=== PATIENT | male | born 1980 | race Caucasian/White ===

== ENCOUNTER 2018-05-29 03:51 | Inpatient (IN) | payer OTHER ==
[~2018-05-29] VITALS: Ht 182.9 cm; Wt 84.0 kg
[2018-05-29] VITALS (10 sets, daily range): BP systolic 91–122; BP diastolic 57–75
[~2018-05-29 03:51] MED LIST: Motrin,Rufen800 MG PO; SUBOXONE 8 MG-1 EACH SL; XANAX0.25 MG PO
[2018-05-29] MEDS ORDERED: ATIVAN0.5 MG PO (03:56)
[2018-05-29 04:30] LABS: EOS % 1.7 % (1.0-4.0); HEMATOCRIT 40.3 % (42.0-52.0); HEMOGLOBIN 13.2 g/dl (14.0-18.0); LYMPH # 0.3 10*3/uL (1.3-4.4); LYMPH % 22.5 % (27.0-41.0); MEAN CELL VOLUME 89.4 fl (80.0-94.0); MEAN CORPUSCULAR HGB 29.3 pg (27.0-31.0); MEAN CORPUSCULAR HGB CONC 32.8 g/dl (33.0-37.0); MEAN PLATELET VOLUME 8.7 fl (9.6-12.3); MONO % 0.8 % (3.0-9.0); NEUT # 0.9 10*3/uL (2.3-7.9); NEUT % 74.2 % (47.0-73.0); PLATELET COUNT AUTOMATED 118 10*3/uL (130-400); RED BLOOD COUNT 4.51 10*6/uL (4.50-5.90); RED CELL DISTRI WIDTH 12.6 % (0-14.5)
[2018-05-29 04:45] LABS: ALBUMIN 3.7 gm/dl (3.1-4.5); ALKALINE PHOSPHATASE 144 U/L (45-117); BUN 10 mg/dl (7-24); CHLORIDE 106 mmol/L (98-107); CREATININE 0.96 mg/dL (0.70-1.30); LIPASE 97 U/L (73-393); POTASSIUM 2.9 mmol/L (3.5-5.1); SGOT/AST 104 IU/L (3-35); SGPT/ALT 161 U/L (12-78); SODIUM 141 mmol/L (136-145); TOTAL PROTEIN 7.3 gm/dL (6.4-8.2)
[2018-05-29 05:06] LABS: BILIRUBIN NEGATIVE (NEGATIVE); BLOOD TRACE-INTACT (NEGATIVE); CLARITY CLEAR (CLEAR); COLOR YELLOW (YELLOW); GLUCOSE NEGATIVE (NEGATIVE); KETONE NEGATIVE (NEGATIVE); LEUKO ESTERASE NEGATIVE (NEGATIVE); NITRITE NEGATIVE (NEGATIVE); PH 5.5 (5.0-9.0); SPECIFIC GRAVITY 1.015 (1.005-1.030); UROBILINOGEN 0.2 E.U./dl (0.2-1.0)
[2018-05-29 05:08] LABS: WHITE BLOOD COUNT 1.2 10*3/uL (4.8-10.8)
[2018-05-29 05:25] LABS: POLYCHROMASIA SLIGHT; TOTAL CELLS COUNTED 100 #CELLS
[2018-05-29 05:26] LABS: PLATELET SUFFICIENCY LOW (NORMAL)
[2018-05-29] MEDS ORDERED: TRAZODONE100 MG PO (06:51)
[2018-05-29 11:51] LABS: HEMATOCRIT 35.6 % (42.0-52.0); HEMOGLOBIN 11.6 g/dl (14.0-18.0); MEAN CELL VOLUME 90.4 fl (80.0-94.0); MEAN CORPUSCULAR HGB 29.4 pg (27.0-31.0); MEAN CORPUSCULAR HGB CONC 32.6 g/dl (33.0-37.0); MEAN PLATELET VOLUME 8.9 fl (9.6-12.3); PLATELET COUNT AUTOMATED 119 10*3/uL (130-400); RED BLOOD COUNT 3.94 10*6/uL (4.50-5.90); RED CELL DISTRI WIDTH 12.8 % (0-14.5); WHITE BLOOD COUNT 8.6 10*3/uL (4.8-10.8)
[2018-05-29 12:59] LABS: PLATELET SUFFICIENCY LOW (NORMAL); TOTAL CELLS COUNTED 100 #CELLS
[2018-05-30] VITALS: BP 88/45
[2018-05-30 06:07] LABS: HEMATOCRIT 34.4 % (42.0-52.0); HEMOGLOBIN 11.2 g/dl (14.0-18.0); MEAN CELL VOLUME 90.5 fl (80.0-94.0); MEAN CORPUSCULAR HGB 29.5 pg (27.0-31.0); MEAN CORPUSCULAR HGB CONC 32.6 g/dl (33.0-37.0); MEAN PLATELET VOLUME 9.1 fl (9.6-12.3); PLATELET COUNT AUTOMATED 107 10*3/uL (130-400); RED CELL DISTRI WIDTH 13.1 % (0-14.5); WHITE BLOOD COUNT 11.8 10*3/uL (4.8-10.8)
[2018-05-30 06:22] LABS: ALBUMIN 2.9 gm/dl (3.1-4.5); ALKALINE PHOSPHATASE 48 U/L (45-117); BUN 13 mg/dl (7-24); CHLORIDE 113 mmol/L (98-107); CHOLESTEROL 115 mg/dL (<200); CREATININE 0.85 mg/dL (0.70-1.30); FREE T4 1.13 ng/dl (0.76-1.46); PHOSPHOROUS 2.6 mg/dL (2.5-4.9); POTASSIUM 3.4 mmol/L (3.5-5.1); SGOT/AST 41 IU/L (3-35); SGPT/ALT 101 U/L (12-78); SODIUM 146 mmol/L (136-145); TOTAL PROTEIN 6.1 gm/dL (6.4-8.2); TRIGLYCERIDES 54 mg/dl (<150); VANCOMYCIN TROUGH 2.2 ug/mL (10-20); VLDL CHOLESTEROL 11 mg/dL (6-40)
[2018-05-30 06:23] LABS: HDL CHOLESTEROL 46 mg/dl (40-60); LDL CHOLESTEROL 58 mg/dL (9-159)
[2018-05-30 06:28] LABS: THYROID STIM HORMONE (HS) 0.224 uIU/ml (0.358-4.75)
[2018-05-30 07:14] LABS: TOTAL CELLS COUNTED 100 #CELLS
[2018-05-30 07:15] LABS: PLATELET SUFFICIENCY LOW (NORMAL)
[2018-05-30 08:00] VITALS: BP 87/49
[2018-05-30 08:13] LABS: VITAMIN D, 25-HYDROXY 28.9 ng/mL (30-100)
[2018-05-30 10:24] LABS: URINE AMPHETAMINES < 1000 (1000ng/ml); URINE BARBITURATES < 200 (200ng/ml); URINE BENZODIAZEPINES < 200 (200ng/ml); URINE CANNABINOIDS (THC) > 50 (50ng/ml); URINE COCAINE < 300 (300ng/ml); URINE METHADONE < 300 (300ng/ml); URINE OPIATES < 300 (300ng/ml)
[2018-05-30 10:32] LABS: URINE PHENCYCLIDINE < 25 (25ng/ml)
[2018-05-30 16:00] VITALS: BP 102/63
[2018-05-30] MEDS ORDERED: NATURE'S BLEND F1 MG PO (18:00)
[2018-05-30] MEDS ORDERED: VITAMIN D-32000 UNIT PO (18:00)
[2018-05-30] MEDS ORDERED: CIPRO500 MG PO (18:00)
[2018-05-30] MEDS ORDERED: FLAGYL500 MG PO (18:00)
[2018-05-30] MEDS ORDERED: PHENERGAN25 M3 PO (18:28)
[2018-05-31 06:15] LABS: HEPATITIS B SURFACE AG Negative (Negative); HIV 1+2 AB + HIV1 P24 AG Non Reactive (Non Reactive)
[2018-06-03 09:54] LABS: HEPATITIS C VIRUS ANTIBODY >11.0 s/co (0.0-0.9)
[2018-06-04 18:03] LABS: RESULT 1 Candida glabrata (.)
[2018-06-08 13:06] LABS: AMPHOTERICIN B MIC 1.0 ug/mL (.); FLUCONAZOLE MIC 8.0 ug/mL (.); ITRACONAZOLE MIC 0.5 ug/mL (.); KETOCONAZOLE MIC 0.25 ug/mL (.); VORICONAZOLE MIC 0.25 ug/mL (.); YEAST ID Candida glabrata (.)
== END 2018-05-30 18:31 | disposition home or self-care (01) | DRG 872 ==
LOC: ED 03:51 → EDHOLD 05:35 → 5E 05:35
PROVIDERS: Emergency Medicine Emergency Medical Services; Family Medicine; Internal Medicine
DX: A41.9 Sepsis, unspecified organism (principal); E87.2 Acidosis; D69.6 Thrombocytopenia, unspecified; D64.9 Anemia, unspecified; K52.9 Noninfective gastroenteritis and colitis, unspecified; R74.0 Nonspecific elevation of levels of transaminase and lactic acid dehydrogenase [LDH]; E87.6 Hypokalemia; G47.00 Insomnia, unspecified; F19.90 Other psychoactive substance use, unspecified, uncomplicated; F11.10 Opioid abuse, uncomplicated; R79.82 Elevated C-reactive protein (CRP); R65.20 Severe sepsis without septic shock; Z79.899 Other long term (current) drug therapy; Z81.8 Family history of other mental and behavioral disorders; Z81.1 Family history of alcohol abuse and dependence; Z84.89 Family history of other specified conditions; Z72.0 Tobacco use; Z71.6 Tobacco abuse counseling; Z78.9 Other specified health status

== ENCOUNTER 2018-05-31 11:33 | Inpatient (IN) | payer OTHER ==
[~2018-05-31] VITALS: Ht 185.4 cm; Wt 83.9 kg
--- NOTE | ~2018-05-31 | PR ---
[place], [place] PROGRESS NOTE NAME: LEOBARDO RINCON UNIT #: [id number] ROOM: 521 DOCTOR: FEDERICO NORTON,SARAI BIRTHDATE: [birth year] DOS: 06/01/2018 I had a [id number] encounter for this patient. The patient was seen and examined, agreed with assessment and plan made by nurse practitioner, Jennifer Frank, and made the necessary changes in the note. Charmaine Caballero MD CM:PNTRANS [id number] SARAI CABALLERO MD 06/11/18 0410 interface
--- NOTE | ~2018-05-31 | PR ---
[place], [place] PROGRESS NOTE NAME: LEOBARDO RINCON UNIT #: [id number] ROOM: 521 DOCTOR: ARACELY CASE,FEBRUARY BIRTHDATE: [birth year] DOS: SUBJECTIVE: The patient is a 38-year-old male who is being followed for fungemia. He was originally at the emergency room on May 29 for fever of 103.3 and nausea, vomiting and diarrhea. The nausea, vomiting and diarrhea have since improved. He had formed stool today. He has also had systemic joint aches and intermittent headache. Headache has improved. No photophobia, had some neck stiffness with original illness, but not pain. He was seen in ER, sent home and then called back due to positive blood culture with budding yeast, still only has it appears one set that is positive. Repeat blood cultures remained sterile from May 31. He had neck stiffness, but no neck pain. He has no neck pain now. No headache. LABORATORY DATA: Cultures as reviewed above. No other blood work done today. He has been afebrile. CURRENT MEDICATIONS: Include folic acid, Lovenox, vitamin D, Desyrel, Suboxone, Zithromax, Phenergan, Rocephin, Flagyl, Mycamine, Nicoderm, Motrin, Restoril. PHYSICAL EXAMINATION: VITAL SIGNS: Temperature 98.3, pulse 56, respirations 18, BP 134/82. GENERAL: Alert and oriented 38-year-old male, in no acute distress. HEENT: Normocephalic, no thrush. NECK: Supple, full range of motion without pain. LUNGS: Clear to auscultation bilaterally. Respirations even and unlabored. HEART: Regular rhythm. No murmur appreciated. ABDOMEN: Soft, nontender, nondistended. EXTREMITIES: No edema, deformity or cyanosis. SKIN: Warm, dry and free of rashes. ASSESSMENT: Fungemia of unknown etiology. He has had CTs done, which did not show any acute process of the chest, abdomen and pelvis other than minimal ground glass opacities in the inferior left upper lobe. PLAN: At this point, we will continue on antibiotics and antifungal coverage. Follow up on repeat blood cultures as well as the original positive blood cultures from the . 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 No tox screen was done. Cryptococcal antigen is pending. We will check a CD4 count and immunoglobulin level. Case discussed with Dr. Dodson. ABENA EVIE JESSICA [place], [place] PROGRESS NOTE NAME: LEOBARDO RINCON UNIT #: [id number] ROOM: 521 DOCTOR: ARACELY CASEFEBRUARY BIRTHDATE: [birth year] Charmaine Dodson MD CM:ALCON [id number] FEBRUARY ARACELY CASE 06/01/18 1744 interface
[~2018-05-31 11:33] MED LIST changes: +ATIVAN0.5 MG PO; +CIPRO500 MG PO; +FLAGYL500 MG PO; +NATURE'S BLEND F1 MG PO; +PHENERGAN25 M3 PO; +TRAZODONE100 MG PO; +VITAMIN D-32000 UNIT PO
[2018-05-31 12:00] VITALS: BP 144/95
[2018-05-31 13:20] LABS: BASO % 0.4 % (0.0-1.0); EOS # 0.2 10*3/uL (0.0-0.4); EOS % 2.8 % (1.0-4.0); HEMATOCRIT 37.2 % (42.0-52.0); LYMPH # 2.2 10*3/uL (1.3-4.4); LYMPH % 26.4 % (27.0-41.0); MEAN CELL VOLUME 90.7 fl (80.0-94.0); MEAN CORPUSCULAR HGB 29.3 pg (27.0-31.0); MEAN CORPUSCULAR HGB CONC 32.3 g/dl (33.0-37.0); MEAN PLATELET VOLUME 9.2 fl (9.6-12.3); MONO # 0.3 10*3/uL (0.1-1.0); MONO % 3.7 % (3.0-9.0); NEUT # 5.3 10*3/uL (2.3-7.9); NEUT % 64.9 % (47.0-73.0); PLATELET COUNT AUTOMATED 128 10*3/uL (130-400); WHITE BLOOD COUNT 8.2 10*3/uL (4.8-10.8)
[2018-05-31 13:29] LABS: ACT PARTIAL THROMBO TIME 30.1 SECONDS (20.8-31.5); INTERNATIONAL NORM RATIO 0.9 (2.0-3.5)
[2018-05-31 13:36] LABS: ALBUMIN 3.5 gm/dl (3.1-4.5); ALKALINE PHOSPHATASE 57 U/L (45-117); BUN 9 mg/dl (7-24); CHLORIDE 108 mmol/L (98-107); PHOSPHOROUS 3.2 mg/dL (2.5-4.9); POTASSIUM 3.7 mmol/L (3.5-5.1); SGOT/AST 42 IU/L (3-35); SGPT/ALT 95 U/L (12-78); SODIUM 142 mmol/L (136-145); TOTAL PROTEIN 7.1 gm/dL (6.4-8.2)
[2018-05-31 13:37] LABS: TROPONIN I < 0.015 ng/ml (<0.045)
[2018-05-31 16:00] VITALS: BP 129/87
[2018-05-31 20:00] VITALS: BP 128/87
[2018-06-01] VITALS: BP 111/71
[2018-06-01 08:00] VITALS: BP 110/64
[2018-06-01 12:00] VITALS: BP 134/82
[2018-06-01 16:00] VITALS: BP 131/77
[2018-06-01 20:00] VITALS: BP 132/83
[2018-06-02] VITALS: BP 149/82
[2018-06-02 06:40] LABS: BASO % 0.5 % (0.0-1.0); EOS # 0.2 10*3/uL (0.0-0.4); EOS % 5.4 % (1.0-4.0); HEMATOCRIT 33.7 % (42.0-52.0); HEMOGLOBIN 11.2 g/dl (14.0-18.0); LYMPH # 1.5 10*3/uL (1.3-4.4); LYMPH % 40.8 % (27.0-41.0); MEAN CELL VOLUME 87.8 fl (80.0-94.0); MEAN CORPUSCULAR HGB 29.2 pg (27.0-31.0); MEAN CORPUSCULAR HGB CONC 33.2 g/dl (33.0-37.0); MEAN PLATELET VOLUME 9.4 fl (9.6-12.3); MONO # 0.2 10*3/uL (0.1-1.0); MONO % 5.7 % (3.0-9.0); NEUT # 1.7 10*3/uL (2.3-7.9); NEUT % 46.5 % (47.0-73.0); PLATELET COUNT AUTOMATED 164 10*3/uL (130-400); RED BLOOD COUNT 3.84 10*6/uL (4.50-5.90); RED CELL DISTRI WIDTH 12.5 % (0-14.5); WHITE BLOOD COUNT 3.7 10*3/uL (4.8-10.8)
[2018-06-02 07:11] LABS: ALBUMIN 2.9 gm/dl (3.1-4.5); ALKALINE PHOSPHATASE 53 U/L (45-117); BUN 5 mg/dl (7-24); CHLORIDE 109 mmol/L (98-107); CREATININE 0.69 mg/dL (0.70-1.30); POTASSIUM 3.5 mmol/L (3.5-5.1); SGOT/AST 39 IU/L (3-35); SGPT/ALT 72 U/L (12-78); SODIUM 145 mmol/L (136-145); TOTAL PROTEIN 6.1 gm/dL (6.4-8.2)
[2018-06-02 08:00] VITALS: BP 121/67
[2018-06-02 12:00] VITALS: BP 132/87
[2018-06-02 16:00] VITALS: BP 146/81
[2018-06-02 20:00] VITALS: BP 152/91
[2018-06-02 22:00] VITALS: BP 140/82
[2018-06-03] VITALS: BP 120/69
[2018-06-03 08:00] VITALS: BP 130/74
[2018-06-03 12:00] VITALS: BP 148/89
[2018-06-03 12:05] LABS: CRYPTOCOCCUS ANTIGEN Negative (Negative)
[2018-06-03 16:00] VITALS: BP 115/72
[2018-06-03 20:00] VITALS: BP 132/89
[2018-06-04] VITALS (9 sets, daily range): BP systolic 87–158; BP diastolic 50–82
[2018-06-04 04:03] LABS: LYMPHOCYTES, ABSOLUTE 2.1 x10E3/uL (0.7-3.1); WBC 4.6 x10E3/uL (3.4-10.8)
[2018-06-04 06:45] LABS: BASO % 0.5 % (0.0-1.0); EOS # 0.3 10*3/uL (0.0-0.4); EOS % 5.2 % (1.0-4.0); HEMATOCRIT 38.3 % (42.0-52.0); HEMOGLOBIN 12.8 g/dl (14.0-18.0); LYMPH # 2.7 10*3/uL (1.3-4.4); LYMPH % 47.4 % (27.0-41.0); MEAN CORPUSCULAR HGB 29.1 pg (27.0-31.0); MEAN CORPUSCULAR HGB CONC 33.4 g/dl (33.0-37.0); MEAN PLATELET VOLUME 9.1 fl (9.6-12.3); MONO # 0.5 10*3/uL (0.1-1.0); MONO % 8.7 % (3.0-9.0); NEUT % 35.4 % (47.0-73.0); PLATELET COUNT AUTOMATED 200 10*3/uL (130-400); RED CELL DISTRI WIDTH 12.7 % (0-14.5); WHITE BLOOD COUNT 5.6 10*3/uL (4.8-10.8)
[2018-06-04 06:55] LABS: BUN 10 mg/dl (7-24); CHLORIDE 104 mmol/L (98-107); IRON 116 ug/dL (65-175); SODIUM 141 mmol/L (136-145); TOTAL IRON BINDING CAPACITY 321 ug/dl (250-450)
[2018-06-04 12:06] LABS: ABSOLUTE CD 4 HELPER 741 /uL (359-1519); ABSOLUTE CD8 SUPRESSOR 775 /uL (109-897); CD 4 POS LYMPH, % 35.3 % (30.8-58.5); CD 8 POS LYMPH, % 36.9 % (12.0-35.5); CD4-CD8 RATIO 0.96 (0.92-3.72)
[2018-06-05 07:12] LABS: BASO % 0.6 % (0.0-1.0); EOS # 0.3 10*3/uL (0.0-0.4); EOS % 5.4 % (1.0-4.0); HEMATOCRIT 37.8 % (42.0-52.0); HEMOGLOBIN 12.5 g/dl (14.0-18.0); LYMPH # 2.2 10*3/uL (1.3-4.4); LYMPH % 45.7 % (27.0-41.0); MEAN CELL VOLUME 88.1 fl (80.0-94.0); MEAN CORPUSCULAR HGB 29.1 pg (27.0-31.0); MEAN CORPUSCULAR HGB CONC 33.1 g/dl (33.0-37.0); MEAN PLATELET VOLUME 8.3 fl (9.6-12.3); MONO # 0.4 10*3/uL (0.1-1.0); MONO % 8.9 % (3.0-9.0); NEUT # 1.8 10*3/uL (2.3-7.9); NEUT % 37.1 % (47.0-73.0); PLATELET COUNT AUTOMATED 189 10*3/uL (130-400); RED BLOOD COUNT 4.29 10*6/uL (4.50-5.90); RED CELL DISTRI WIDTH 12.8 % (0-14.5); WHITE BLOOD COUNT 4.8 10*3/uL (4.8-10.8)
[2018-06-05 08:00] VITALS: BP 120/79
[2018-06-05 12:00] VITALS: BP 114/75
[2018-06-05] MEDS ORDERED: FLUONAZOLE200 MG PO (15:24)
== END 2018-06-05 17:08 | disposition home or self-care (01) | DRG 289 ==
LOC: 5E 11:33
PROVIDERS: Family Medicine; Internal Medicine; Nurse Practitioner
PROC: B24BZZ4 Ultrasonography of Heart with Aorta, Transesophageal (ICD-10-PCS; principal; 2018-06-04)
DX: I33.0 Acute and subacute infective endocarditis (principal); B49 Unspecified mycosis; D69.6 Thrombocytopenia, unspecified; E87.8 Other disorders of electrolyte and fluid balance, not elsewhere classified; H20.9 Unspecified iridocyclitis; H30.90 Unspecified chorioretinal inflammation, unspecified eye; D64.9 Anemia, unspecified; K52.9 Noninfective gastroenteritis and colitis, unspecified; R74.0 Nonspecific elevation of levels of transaminase and lactic acid dehydrogenase [LDH]; R79.82 Elevated C-reactive protein (CRP); Z72.0 Tobacco use; Z71.6 Tobacco abuse counseling; R00.1 Bradycardia, unspecified; R70.0 Elevated erythrocyte sedimentation rate; G47.00 Insomnia, unspecified; E53.8 Deficiency of other specified B group vitamins; E55.9 Vitamin D deficiency, unspecified; F19.90 Other psychoactive substance use, unspecified, uncomplicated; I34.0 Nonrheumatic mitral (valve) insufficiency; G43.809 Other migraine, not intractable, without status migrainosus; B19.20 Unspecified viral hepatitis C without hepatic coma; Z81.1 Family history of alcohol abuse and dependence; Z81.8 Family history of other mental and behavioral disorders; Z84.89 Family history of other specified conditions; Z88.8 Allergy status to other drugs, medicaments and biological substances; Z88.6 Allergy status to analgesic agent

== ENCOUNTER 2018-06-21 03:07 | Emergency (ER) | payer OTHER ==
[~2018-06-21] VITALS: Ht 182.8 cm; Wt 82.6 kg
[~2018-06-21 03:07] MED LIST changes: +FLUONAZOLE200 MG PO
[2018-06-21] MEDS ORDERED: MYCAMINE100 MG IV (03:13)
[2018-06-21 04:15] LABS: BILIRUBIN NEGATIVE (NEGATIVE); BLOOD NEGATIVE (NEGATIVE); CLARITY CLEAR (CLEAR); COLOR YELLOW (YELLOW); GLUCOSE NEGATIVE (NEGATIVE); KETONE NEGATIVE (NEGATIVE); LEUKO ESTERASE NEGATIVE (NEGATIVE); NITRITE NEGATIVE (NEGATIVE); SPECIFIC GRAVITY <= 1.005 (1.005-1.030); UROBILINOGEN 0.2 E.U./dl (0.2-1.0)
[2018-06-21 04:16] LABS: BASO % 0.5 % (0.0-1.0); EOS # 0.2 10*3/uL (0.0-0.4); EOS % 2.5 % (1.0-4.0); HEMATOCRIT 34.2 % (42.0-52.0); HEMOGLOBIN 11.6 g/dl (14.0-18.0); LYMPH # 1.7 10*3/uL (1.3-4.4); LYMPH % 28.2 % (27.0-41.0); MEAN CELL VOLUME 87.5 fl (80.0-94.0); MEAN CORPUSCULAR HGB 29.7 pg (27.0-31.0); MEAN CORPUSCULAR HGB CONC 33.9 g/dl (33.0-37.0); MEAN PLATELET VOLUME 8.5 fl (9.6-12.3); MONO # 0.4 10*3/uL (0.1-1.0); MONO % 6.9 % (3.0-9.0); NEUT # 3.8 10*3/uL (2.3-7.9); NEUT % 61.6 % (47.0-73.0); PLATELET COUNT AUTOMATED 251 10*3/uL (130-400); RED BLOOD COUNT 3.91 10*6/uL (4.50-5.90); RED CELL DISTRI WIDTH 12.5 % (0-14.5); WHITE BLOOD COUNT 6.1 10*3/uL (4.8-10.8)
[2018-06-21 04:23] LABS: RBC 0-2 rbc/hpf (0-2); WBC 0-2 wbc/hpf (0-5)
[2018-06-21 04:33] LABS: ALBUMIN 3.8 gm/dl (3.1-4.5); ALKALINE PHOSPHATASE 57 U/L (45-117); BUN 10 mg/dl (7-24); CHLORIDE 99 mmol/L (98-107); CREATININE 0.89 mg/dL (0.70-1.30); POTASSIUM 3.7 mmol/L (3.5-5.1); SGOT/AST 33 IU/L (3-35); SGPT/ALT 55 U/L (12-78); SODIUM 137 mmol/L (136-145); TOTAL PROTEIN 7.4 gm/dL (6.4-8.2)
[2018-06-21 05:45] LABS: URINE AMPHETAMINES < 1000 (1000ng/ml); URINE BARBITURATES < 200 (200ng/ml); URINE BENZODIAZEPINES < 200 (200ng/ml); URINE CANNABINOIDS (THC) > 50 (50ng/ml); URINE COCAINE < 300 (300ng/ml); URINE METHADONE < 300 (300ng/ml); URINE OPIATES < 300 (300ng/ml)
[2018-06-21 05:46] LABS: URINE PHENCYCLIDINE < 25 (25ng/ml)
== END 2018-06-23 05:22 | disposition short-term general hospital (02) ==
LOC: ED 03:07
PROVIDERS: Emergency Medicine
DX: I95.9 Hypotension, unspecified (principal); R50.9 Fever, unspecified; R51 Headache; R06.02 Shortness of breath; F17.200 Nicotine dependence, unspecified, uncomplicated; Z88.6 Allergy status to analgesic agent; Z79.899 Other long term (current) drug therapy

== ENCOUNTER 2018-06-22 22:32 | Emergency (ER) | payer OTHER ==
[~2018-06-22] VITALS: Ht 182.8 cm; Wt 81.6 kg
--- NOTE | ~2018-06-22 | EKG ---
[place], [place] ELECTROCARDIOGRAM REPORT NAME: LEOBARDO RINCON UNIT #: [id number] ROOM: DOCTOR: EPIPHANY DRAFT REPORT BIRTHDATE: [birth year] [facility] Test Date: 2018-06-22 Test Time: 23:13:05 Pat Name: LEOBARDO RINCON Department: Room: Gender: Clinical Laboratory Aide: : 1980 Requested By: LEILANI PRICE Order Number: [id number] Reading MD: Yessi Frank MD Measurements Intervals [place] Rate: 117 P: 58 HI: 123 QRS: 69 QRSD: 109 T: -21 QT: 317 QTc: 443 Interpretive Statements Sinus tachycardia Probable left atrial enlargement RSR' in V1 or V2, right VCD or RVH Baseline wander in lead(s) II Electronically Signed On 06-23-2018 11:13:17 PDT by Yessi Frank MD CM:EKGRPT:ELECTROCARDIOGRAM REPORT [id number] LEILANI PRICE MD EPIPHANY DRAFT REPORT LEILANI PRICE MD
[~2018-06-22 22:32] MED LIST changes: +MYCAMINE100 MG IV
[2018-06-22 23:30] LABS: BASO % 0.4 % (0.0-1.0); EOS # 0.2 10*3/uL (0.0-0.4); EOS % 2.9 % (1.0-4.0); HEMATOCRIT 35.3 % (42.0-52.0); HEMOGLOBIN 11.8 g/dl (14.0-18.0); LYMPH # 0.7 10*3/uL (1.3-4.4); LYMPH % 8.9 % (27.0-41.0); MEAN CELL VOLUME 86.7 fl (80.0-94.0); MEAN CORPUSCULAR HGB CONC 33.4 g/dl (33.0-37.0); MEAN PLATELET VOLUME 8.6 fl (9.6-12.3); MONO # 0.5 10*3/uL (0.1-1.0); MONO % 5.9 % (3.0-9.0); NEUT # 6.2 10*3/uL (2.3-7.9); NEUT % 81.6 % (47.0-73.0); PLATELET COUNT AUTOMATED 215 10*3/uL (130-400); RED BLOOD COUNT 4.07 10*6/uL (4.50-5.90); RED CELL DISTRI WIDTH 12.2 % (0-14.5); WHITE BLOOD COUNT 7.6 10*3/uL (4.8-10.8)
[2018-06-22 23:40] LABS: ACT PARTIAL THROMBO TIME 28.5 SECONDS (20.8-31.5)
[2018-06-22 23:46] LABS: ALBUMIN 3.8 gm/dl (3.1-4.5); ALKALINE PHOSPHATASE 93 U/L (45-117); BUN 12 mg/dl (7-24); CHLORIDE 100 mmol/L (98-107); CREATININE 0.95 mg/dL (0.70-1.30); LIPASE 66 U/L (73-393); POTASSIUM 3.5 mmol/L (3.5-5.1); SGOT/AST 35 IU/L (3-35); SGPT/ALT 66 U/L (12-78); SODIUM 135 mmol/L (136-145); TOTAL PROTEIN 8.3 gm/dL (6.4-8.2)
[2018-06-22 23:47] LABS: ETHYL ALCOHOL < 3.0 mg/dl (<3); TROPONIN I < 0.015 ng/ml (<0.045)
[2018-06-23 00:09] LABS: BILIRUBIN NEGATIVE (NEGATIVE); BLOOD NEGATIVE (NEGATIVE); CLARITY CLEAR (CLEAR); COLOR YELLOW (YELLOW); GLUCOSE NEGATIVE (NEGATIVE); KETONE NEGATIVE (NEGATIVE); LEUKO ESTERASE NEGATIVE (NEGATIVE); NITRITE NEGATIVE (NEGATIVE); SPECIFIC GRAVITY <= 1.005 (1.005-1.030); UROBILINOGEN 0.2 E.U./dl (0.2-1.0)
[2018-06-23 00:17] LABS: URINE AMPHETAMINES < 1000 (1000ng/ml); URINE BARBITURATES < 200 (200ng/ml); URINE BENZODIAZEPINES < 200 (200ng/ml); URINE CANNABINOIDS (THC) > 50 (50ng/ml); URINE COCAINE < 300 (300ng/ml); URINE METHADONE < 300 (300ng/ml); URINE OPIATES < 300 (300ng/ml)
[2018-06-23 00:18] LABS: URINE PHENCYCLIDINE < 25 (25ng/ml)
== END 2018-06-23 05:01 | disposition short-term general hospital (02) ==
LOC: ED 22:32
PROVIDERS: Emergency Medicine Emergency Medical Services
DX: I33.0 Acute and subacute infective endocarditis (principal); F17.200 Nicotine dependence, unspecified, uncomplicated; Z88.6 Allergy status to analgesic agent; Z79.899 Other long term (current) drug therapy

== ENCOUNTER → 2018-09-24 | Outpatient (CLI) | payer OTHER ==
[~2018-09-24] MED LIST changes: +LEXAPRO20 MG PO; +OMEPRAZOLE20 M2 PO; +TRAZODONE HCL300 MG PO
== END | disposition home or self-care (01) ==
LOC: RAD 13:43
DX: M19.011 Primary osteoarthritis, right shoulder (principal); M75.41 Impingement syndrome of right shoulder

== ENCOUNTER → 2018-10-11 | Day surgery (SDC) | payer OTHER ==
[~2018-10-11] VITALS: Ht 182.8 cm; Wt 83.9 kg
[~2018-10-11] MED LIST changes: -OMEPRAZOLE20 M2 PO
== END ==
LOC: SDC 10-08 13:15
DX: R10.13 Epigastric pain (principal); Z53.9 Procedure and treatment not carried out, unspecified reason

== ENCOUNTER → 2018-11-06 | Day surgery (SDC) | payer OTHER ==
[~2018-11-06] VITALS: Ht 182.8 cm; Wt 83.9 kg
[~2018-11-06] MED LIST changes: +OMEPRAZOLE20 M2 PO
--- NOTE | ~2018-11-06 | O ---
[place], [place] OPERATIVE NOTE NAME: LEOBARDO RINCON UNIT #: [id number] ROOM: DOCTOR: NEDRA GOMEZ MD BIRTHDATE: [birth year] DOS: 11/06/2018 INDICATIONS: A 38-year-old patient who presented with chief complaint of epigastric distress, dyspepsia, hepatitis C positive type 1A. ALLERGIES: SUSPECTED TO BE TO MORPHINE AND VISTARIL ____. FAMILY HISTORY: Noncontributory. PAST SURGICAL HISTORY: Right shoulder. 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 Gallbladder sludge. SOCIAL HISTORY: Smoker and has stopped alcohol last year. PROCEDURE: Today's procedure part of investigation is panendoscopy plus biopsy. PREMEDICATION: Propofol. SCOPE: Olympus forward-viewing gastroscope Q10 video. REPORT: After putting the patient in left lateral position and application of lubricant to the scope, the scope was introduced. Thereafter, under direct visualization, advanced through the length of esophagus without difficulty. There is no esophageal varicosity, gastritis of [id number] degree was noticed. No obstruction, no ulceration seen. Duodenal bulb, second and third part within normal limits. The patient extubated, tolerated the procedure well. IMPRESSION: Gastritis. The patient with a history of hepatitis C and Suboxone clinic with recreational drug, heroin history. Supportive management, follow up on gallbladder studies of his clinic visit. NEDRA GOMEZ MD CM:OPRECORD:OPERATIVE NOTE [id number] NEDRA GOMEZ MD 11/06/18 0846 interface
[2018-11-06 07:02] VITALS: BP 110/64
[2018-11-06 08:12] VITALS: BP 136/105
[2018-11-06 08:25] VITALS: BP 93/51
[2018-11-06 08:40] VITALS: BP 105/60
== END | disposition home or self-care (01) ==
LOC: SDC 11-01 10:15
DX: K29.50 Unspecified chronic gastritis without bleeding (principal); B19.20 Unspecified viral hepatitis C without hepatic coma; F19.11 Other psychoactive substance abuse, in remission; F41.9 Anxiety disorder, unspecified; F32.9 Major depressive disorder, single episode, unspecified; M19.90 Unspecified osteoarthritis, unspecified site; Z72.89 Other problems related to lifestyle; Z98.890 Other specified postprocedural states; Z88.5 Allergy status to narcotic agent; Z88.8 Allergy status to other drugs, medicaments and biological substances

== ENCOUNTER → 2018-12-14 | Outpatient (CLI) | payer OTHER | END | disposition home or self-care (01) | LOC: US 10:00 | DX: N50.3 Cyst of epididymis (principal) ==

== ENCOUNTER → 2019-05-08 | Day surgery (SDC) | payer OTHER | END | disposition home or self-care (01) | LOC: RAD 10:00 | DX: M65.811 Other synovitis and tenosynovitis, right shoulder (principal); M19.011 Primary osteoarthritis, right shoulder; M25.511 Pain in right shoulder; M75.41 Impingement syndrome of right shoulder; M75.01 Adhesive capsulitis of right shoulder; Z79.1 Long term (current) use of non-steroidal anti-inflammatories (NSAID); Z98.890 Other specified postprocedural states; Z79.899 Other long term (current) drug therapy; Z79.2 Long term (current) use of antibiotics ==

== ENCOUNTER 2025-08-26 17:35 | Emergency (ER) | payer OTHER ==
[~2025-08-26] VITALS: Ht 182.8 cm; Wt 83.5 kg
== END 2025-08-26 21:44 | disposition home or self-care (01) ==
LOC: ED 17:35
DX: S82.432A Displaced oblique fracture of shaft of left fibula, initial encounter for closed fracture (principal); S82.892A Other fracture of left lower leg, initial encounter for closed fracture; Z88.5 Allergy status to narcotic agent; Z98.890 Other specified postprocedural states; Y04.2XXA Assault by strike against or bumped into by another person, initial encounter; Y93.89 Activity, other specified; Y92.89 Other specified places as the place of occurrence of the external cause; Y99.8 Other external cause status

== ENCOUNTER → 2025-09-01 | Day surgery (SDC) | payer OTHER ==
[~2025-09-01] VITALS: Ht 182.8 cm; Wt 83.9 kg
[~2025-09-01] MED LIST changes: +ACETAMINOPHEN 100 ML IV ONE; +Bupivacaine Hydrochloride/Ep2 30 ML VIAL ONE; +Dexamethasone Sodium Phospha 4 MG/ML VIAL IV ONE; +Ketamine Hydrochloride 50 MG/5 ML SYRINGE IV ONE; +Lactated Ringer's Solution 1,000 ML IV ONE; +MAGNESIUM SULFATE 1 GM/2 ML VIAL IV ONE; +Midazolam Hydrochloride 2 MG/2 ML VIAL IV ONE; +Ondansetron Hydrochloride 4 MG/2 ML VIAL IV ONE; +PROPOFOL 200 MG/20 ML VIAL IV ONE; +Ropivacaine Hydrochloride 5 MG/ML 20 ML AMP IJ ONE; +SEVOFLURANE 250 ML BOT INH ONE; +ceFAZolin sodium/sodium chlor 20 ML IV ONE
[2025-09-01 09:08] LABS: BUN 12 mg/dl (9-23)
[2025-09-01 09:23] VITALS: BP 128/71
[2025-09-01 11:42] VITALS: BP 150/93
[2025-09-01 11:57] VITALS: BP 146/84
[2025-09-01 12:12] VITALS: BP 136/85
[2025-09-01 12:27] VITALS: BP 143/83
[2025-09-01 12:42] VITALS: BP 141/81
== END | disposition home or self-care (01) ==
LOC: SDC 08-28 13:15
PROVIDERS: ATTEND Orthopaedic Surgery
DX: S82.865A Nondisplaced Maisonneuve's fracture of left leg, initial encounter for closed fracture (principal); S93.432A Sprain of tibiofibular ligament of left ankle, initial encounter; S82.892A Other fracture of left lower leg, initial encounter for closed fracture; F41.9 Anxiety disorder, unspecified; R56.9 Unspecified convulsions; K75.9 Inflammatory liver disease, unspecified; F17.200 Nicotine dependence, unspecified, uncomplicated; Z79.899 Other long term (current) drug therapy; Z98.890 Other specified postprocedural states; Z88.8 Allergy status to other drugs, medicaments and biological substances; X58.XXXA Exposure to other specified factors, initial encounter; Y93.89 Activity, other specified; Y92.89 Other specified places as the place of occurrence of the external cause; Y99.8 Other external cause status

== ENCOUNTER → 2025-09-14 | Outpatient (CLI) | payer OTHER ==
[~2025-09-14] MED LIST changes: -ACETAMINOPHEN 100 ML IV ONE; -Bupivacaine Hydrochloride/Ep2 30 ML VIAL ONE; -Dexamethasone Sodium Phospha 4 MG/ML VIAL IV ONE; -Ketamine Hydrochloride 50 MG/5 ML SYRINGE IV ONE; -Lactated Ringer's Solution 1,000 ML IV ONE; -MAGNESIUM SULFATE 1 GM/2 ML VIAL IV ONE; -Midazolam Hydrochloride 2 MG/2 ML VIAL IV ONE; -Ondansetron Hydrochloride 4 MG/2 ML VIAL IV ONE; -PROPOFOL 200 MG/20 ML VIAL IV ONE; -Ropivacaine Hydrochloride 5 MG/ML 20 ML AMP IJ ONE; -SEVOFLURANE 250 ML BOT INH ONE; -ceFAZolin sodium/sodium chlor 20 ML IV ONE
== END | disposition home or self-care (01) ==
LOC: ORTHO 14:28
PROVIDERS: ATTEND Orthopaedic Surgery
DX: S82.892A Other fracture of left lower leg, initial encounter for closed fracture (principal); X58.XXXA Exposure to other specified factors, initial encounter; Y93.89 Activity, other specified; Y92.89 Other specified places as the place of occurrence of the external cause; Y99.8 Other external cause status

== ENCOUNTER → 2025-10-12 | Outpatient (CLI) | payer OTHER | END | disposition home or self-care (01) | LOC: ORTHO 03:10 | PROVIDERS: ATTEND Orthopaedic Surgery | DX: S82.892A Other fracture of left lower leg, initial encounter for closed fracture (principal); X58.XXXA Exposure to other specified factors, initial encounter; Y93.89 Activity, other specified; Y92.89 Other specified places as the place of occurrence of the external cause; Y99.8 Other external cause status ==

== ENCOUNTER → 2025-11-23 | Outpatient (CLI) | payer OTHER | END | disposition home or self-care (01) | LOC: ORTHO 05:06 | PROVIDERS: ATTEND Orthopaedic Surgery | DX: S82.892A Other fracture of left lower leg, initial encounter for closed fracture (principal); X58.XXXA Exposure to other specified factors, initial encounter; Y93.89 Activity, other specified; Y92.89 Other specified places as the place of occurrence of the external cause; Y99.8 Other external cause status ==